=== PATIENT | male | born 1940 | race Caucasian/White ===

== ENCOUNTER 2017-01-24 05:49 | Inpatient (IN) | payer OTHER ==
[~2017-01-24] VITALS: Ht 182.9 cm; Wt 77.0 kg
[~2017-01-24 05:49] MED LIST: AMLO2.5T PO; ASPI325T80 PO; ATOR10TA9 PO; CALC200T24 PO; CHOL10003 PO; CHOL40002 PO; CYAN500T18 PO; DULO20CA45 PO; HYDR25TA11 PO; LISI-170 PO; METO50TA4 PO; MIRT7.5T8 PO; OMEP-110 PO; PRAZ1CAP2 PO; ZOLP10TA5 PO; albuterol inhaler INH
[2017-01-24] MEDS ORDERED: LACTATED RINGERS 1,000 ML IV SCH (06:24)
[2017-01-24 06:27] VITALS: BP 106/70
[2017-01-24] MEDS ORDERED: LIDOCAINE 1%, 2ML SQ PRN (06:30)
[2017-01-24] MEDS ORDERED: BUPIVACAINE/PF-EPI 0.5% 1:200K ONE (06:57)
[2017-01-24] MEDS ORDERED: THROMBIN 5,000 UNIT VIAL TP ONE (06:57)
[2017-01-24] MEDS ORDERED: BACITRACIN 50,000 UNIT ONE (06:57)
[2017-01-24] MEDS ORDERED: MIDAZOLAM 1 MG/ML, 2ML ONE (07:05)
[2017-01-24] MEDS ORDERED: FENTANYL PF 250 MCG/5ML ONE (07:05)
[2017-01-24] MEDS ORDERED: PROPOFOL 10 MG/ML, 20ML ONE (07:27)
[2017-01-24] MEDS ORDERED: SUCCINYLCHOLINE 20 MG/ML, 10ML ONE (07:27)
[2017-01-24] MEDS ORDERED: ROCURONIUM 10 MG/ML ONE (07:27)
[2017-01-24] MEDS ORDERED: ONDANSETRON 2MG/ML, 2ML ONE (07:27)
[2017-01-24] MEDS ORDERED: CEFAZOLIN 1,000 MG ONE (07:27)
[2017-01-24] MEDS ORDERED: ACETAMINOPHEN 325 MG TABLET PO PRN (08:00)
[2017-01-24] MEDS ORDERED: ONDANSETRON 2MG/ML, 2ML IVPush PRN (08:00)
[2017-01-24] MEDS ORDERED: LABETALOL 5MG/ML, 20ML IV PRN (08:00)
[2017-01-24] MEDS ORDERED: hydrALAzine 20 MG/ML, 1ML IV PRN (08:00)
[2017-01-24] MEDS ORDERED: OXYcodone 5 MG/5 ML ORAL.SOL UDC PO PRN (08:00)
[2017-01-24] MEDS ORDERED: METOCLOPRAMIDE 5 MG/ML, 2ML IV PRN (08:00)
[2017-01-24] MEDS ORDERED: FENTANYL PF 100 MCG/2ML IV PRN (08:00)
[2017-01-24] MEDS ORDERED: HYDROmorphone 1 MG/ML, 1ML IV PRN (08:00)
[2017-01-24] MEDS ORDERED: ACETAMINOPHEN 650 MG/20.3 ML UDC ONE (09:31)
[2017-01-24] MEDS ORDERED: OXYcodone 5 MG/5 ML ORAL.SOL UDC ONE (09:32)
[2017-01-24] MEDS ORDERED: HYDROmorphone 2 MG/ML, 1ML ONE (09:32)
[2017-01-24] MEDS ORDERED: PHARMACY MAY ADJ FOR RENAL FX MC PRN (11:30)
[2017-01-24] MEDS ORDERED: HYDROcodone/APAP 5/325 TABLET PO PRN (12:00)
[2017-01-24] MEDS ORDERED: METHOCARBAMOL 750 MG TABLET PO PRN (12:00)
[2017-01-24] MEDS ORDERED: ALBUTEROL SULFATE 2.5 MG/3 ML HHN PRN (12:00)
[2017-01-24] MEDS ORDERED: MAGNESIUM HYDROXIDE 8%, 30ML UDC PO PRN (12:00)
[2017-01-24] MEDS ORDERED: morphine SULFATE 10 MG/ML, 1ML IV PRN (12:00)
[2017-01-24 13:00] VITALS: BP 132/88
[2017-01-24] MEDS: OMEPRAZOLE 20 MG CAPSULE.DR PO SCH ×3 (13:00→19:36)
[2017-01-24] MEDS: NS + 20MEQ KCL 1,000 ML IV SCH (14:59)
[2017-01-24 18:51] VITALS: BP 159/82
[2017-01-24] MEDS: ONDANSETRON 2MG/ML, 2ML IV PRN (19:33)
[2017-01-24] MEDS: CALCIUM CARBONATE 500 MG TAB.CHEW PO SCH (19:36)
[2017-01-24] MEDS: PRAZOSIN 1 MG CAPSULE PO SCH (21:00)
[2017-01-24] MEDS ORDERED: SENNA/DOCUSATE TABLET PO SCH (21:00)
[2017-01-24] MEDS: SENNA/DOCUSATE TABLET PO SCH (21:00)
[2017-01-24] MEDS: MIRTAZAPINE 15 MG TABLET PO SCH (21:00)
[2017-01-24] MEDS: SODIUM CHLORIDE FLUSH 10ML SYR IVF SCH (21:00)
[2017-01-24] MEDS: ZOLPIDEM 10MG TABLET PO SCH (21:00)
[2017-01-24] MEDS: ATORVASTATIN 10 MG TABLET PO SCH (21:00)
[2017-01-24] MEDS ORDERED: PROMETHAZINE 25 MG/ML, 1ML IM PRN (22:00)
[2017-01-24 23:36] VITALS: BP 157/85
[2017-01-25] MEDS ORDERED: METOCLOPRAMIDE 5 MG/ML, 2ML IVPush PRN
[2017-01-25] MEDS ORDERED: PROCHLORPERAZINE 5 MG/ML, 2ML IV PRN
[2017-01-25 04:17] VITALS: BP 132/74
[2017-01-25] MEDS: ONDANSETRON 2MG/ML, 2ML IV PRN (04:42)
[2017-01-25] MEDS: NS + 20MEQ KCL 1,000 ML IV SCH ×3 (04:54→23:58)
[2017-01-25] MEDS: METOPROLOL SUCCINATE 50 MG TAB.ER.24H PO SCH (06:00)
[2017-01-25 06:58] VITALS: BP 153/86
[2017-01-25] MEDS ORDERED: PANTOPRAZOLE 40 MG IV IVPush ONE (08:30)
[2017-01-25] MEDS: DULOXETINE 20 MG CAPSULE.DR PO SCH (08:49)
[2017-01-25] MEDS: AMLODIPINE 2.5 MG TABLET PO SCH (08:50)
[2017-01-25] MEDS: CHOLECALCIFEROL 1,000 UNIT TABLET PO SCH (08:50)
[2017-01-25] MEDS: LISINOPRIL 20 MG TABLET PO SCH ×2 (08:50→22:38)
[2017-01-25] MEDS: CYANOCOBALAMIN 1,000 MCG TABLET PO SCH (08:50)
[2017-01-25] MEDS: OMEPRAZOLE 20 MG CAPSULE.DR PO SCH (08:55)
[2017-01-25] MEDS: SODIUM CHLORIDE FLUSH 10ML SYR IVF SCH ×2 (08:55→22:38)
[2017-01-25] MEDS: SENNA/DOCUSATE TABLET PO SCH ×2 (08:55→22:37)
[2017-01-25] MEDS ORDERED: ALUMINUM/MAG/SIMETHICONE 30 ML UDC PO PRN (09:00)
[2017-01-25] MEDS ORDERED: LORazepam 2 MG/ML, 1ML IV ONE (09:00)
[2017-01-25 14:13] VITALS: BP 100/65
[2017-01-25 19:47] VITALS: BP 121/75
[2017-01-25] MEDS: ZOLPIDEM 10MG TABLET PO SCH (21:00)
[2017-01-25] MEDS: CALCIUM CARBONATE 500 MG TAB.CHEW PO SCH (22:37)
[2017-01-25] MEDS: ATORVASTATIN 10 MG TABLET PO SCH (22:38)
[2017-01-25] MEDS: PRAZOSIN 1 MG CAPSULE PO SCH (22:38)
[2017-01-25] MEDS: MIRTAZAPINE 15 MG TABLET PO SCH (22:38)
[2017-01-26 02:40] VITALS: BP 138/79
[2017-01-26 06:23] VITALS: BP 134/88
[2017-01-26] MEDS: METOPROLOL SUCCINATE 50 MG TAB.ER.24H PO SCH (06:25)
[2017-01-26 07:22] VITALS: BP 100/57
[2017-01-26] MEDS: CHOLECALCIFEROL 1,000 UNIT TABLET PO SCH (08:39)
[2017-01-26] MEDS: SENNA/DOCUSATE TABLET PO SCH (08:39)
[2017-01-26] MEDS: CYANOCOBALAMIN 1,000 MCG TABLET PO SCH (08:39)
[2017-01-26] MEDS: AMLODIPINE 2.5 MG TABLET PO SCH (08:40)
[2017-01-26] MEDS: DULOXETINE 20 MG CAPSULE.DR PO SCH (08:40)
[2017-01-26] MEDS: LISINOPRIL 20 MG TABLET PO SCH (08:40)
[2017-01-26] MEDS: CALCIUM CARBONATE 500 MG TAB.CHEW PO SCH (08:43)
[2017-01-26] MEDS: SODIUM CHLORIDE FLUSH 10ML SYR IVF SCH (08:44)
[2017-01-26 10:24] VITALS: BP 103/62
[2017-01-26] MEDS ORDERED: HYDR-3240 PO (11:07)
[2017-01-26] MEDS ORDERED: SENN1TAB7 PO (11:08)
[2017-01-26] MEDS ORDERED: ONDA4TAB7 PO (11:09)
== END 2017-01-26 11:30 | disposition home or self-care (01) | DRG 517 ==
LOC: OUT 05:49 → ORIP 11:22 → 4NOR 13:00 → DCLOUNGE 01-26 09:43
PROVIDERS: ADMIT Neurological Surgery; ATTEND Neurological Surgery
PROC: 4A11X4G Monitoring of Peripheral Nervous Electrical Activity, Intraoperative, External Approach (ICD-10-PCS; 2017-01-24)
PROC: 01NB0ZZ Release Lumbar Nerve, Open Approach (ICD-10-PCS; principal; 2017-01-24 07:30)
DX: M48.06 Spinal stenosis, lumbar region (principal); I73.9 Peripheral vascular disease, unspecified; I10 Essential (primary) hypertension; E78.00 Pure hypercholesterolemia, unspecified; J44.9 Chronic obstructive pulmonary disease, unspecified; Z79.899 Other long term (current) drug therapy; Z95.1 Presence of aortocoronary bypass graft
CPT/HCPCS: 72100; J0690; J1170; J2250; J2405; J2550; J2704; J3010; J3480; C9113; J0330; J2060; J2270; J2765; J7120; Q0177